=== PATIENT | female | born 1970 | race Caucasian/White ===

== ENCOUNTER 2020-06-15 14:41 | Observation (INO) ==
[2020-06-15] MEDS ORDERED: *HR* FentaNYL (PF) 100 MCG/2 ML VIAL IVP ONE (14:57)
[2020-06-15] MEDS ORDERED: Aspirin Enteric Coated 325 MG Tablet PO SCH (15:00)
[2020-06-15 15:29] LABS: Basophils # 0.1 K/mcL (0.0-0.2); Basophils % 0.6 %; Eosinophils # 0.2 K/mcL (0.0-0.6); Hemoglobin 15.6 g/dL (11.5-15.4); Immature Granulocytes % 0.4 % (0-4); Lymphocytes # 1.5 K/mcL (0.6-4.6); Mean Corpuscular HGB Conc 33.2 g/dL (31.6-35.5); Mean Corpuscular Hemoglobin 29.4 pg (28.0-33.3); Mean Corpuscular Volume 88.7 fL (83.0-100.0); Mean Platelet Volume 9.7 fL (9.4-12.4); Monocytes # 0.5 K/mcL (0.0-1.3); Monocytes % 6.4 %; Neutrophils # 6.1 K/mcL (1.6-8.9); Platelet Count 249 K/mcL (140-400); Red Cell Distribution Width 13.7 % (11.5-14.5); Segmented Neutrophils % 72.6 %; White Blood Count 8.4 K/mcL (4.3-11.1)
[2020-06-15 16:00] LABS: BUN/Creatinine Ratio 15 (6-26); Blood Urea Nitrogen 12 mg/dL (6-20); Carbon Dioxide 22 mEq/L (23-29); Chloride 109 mEq/L (98-107); Glucose 112 mg/dL (70-105); Osmolality,Calculated 287 (280-300); Potassium 3.9 mEq/L (3.5-5.1); Sodium 138 mEq/L (136-145); Troponin I < 0.03 ng/mL (< 0.04); eGFR For African Americans > 60 (> 60); eGFR For Non-African Americans > 60 (> 60)
[2020-06-15] MEDS ORDERED: Perflutren Lipid Microsphere 1.3 ML in 0.9 % Sodium Chloride 8.7 ML IVP PRN (17:42)
[2020-06-15] MEDS ORDERED: Nitroglycerin 0.4 MG TAB.SUBL SL PRN (17:42)
[2020-06-15] MEDS ORDERED: Naloxone 0.4 MG/ML INJ IVP PRN (17:42)
[2020-06-15] MEDS ORDERED: Ondansetron 4 MG/2 ML VIAL IVP PRN (17:42)
[2020-06-15] MEDS ORDERED: *HR* HYDROcodone/Acet 5/325 mg TABLET PO PRN (17:42)
[2020-06-15] MEDS ORDERED: Acetaminophen 325 MG TABLET PO PRN (17:42)
[2020-06-15 18:33] LABS: Thyroid Stimulating Hormone 1.237 mcIU/mL (0.340-5.600)
[2020-06-15] MEDS ORDERED: amLODIPine 5 MG TABLET PO SCH (20:30)
[2020-06-15] MEDS: lisinopriL 20 MG TABLET PO SCH (21:00)
[2020-06-15] MEDS: Ipratropium/Albuterol Neb 3 ML IH SCH (21:51)
[2020-06-15] MEDS: Ketorolac 30 MG/ML VIAL IVP PRN (22:33)
[2020-06-16 02:49] LABS: Basophils % 0.4 %; Eosinophils # 0.2 K/mcL (0.0-0.6); Hematocrit 43.6 % (35.3-44.9); Hemoglobin 14.4 g/dL (11.5-15.4); Immature Granulocytes % 0.4 % (0-4); Lymphocytes # 1.9 K/mcL (0.6-4.6); Lymphocytes % 20.8 %; Mean Corpuscular Hemoglobin 28.5 pg (28.0-33.3); Mean Corpuscular Volume 86.2 fL (83.0-100.0); Mean Platelet Volume 9.6 fL (9.4-12.4); Monocytes # 0.7 K/mcL (0.0-1.3); Monocytes % 7.7 %; Neutrophils # 6.3 K/mcL (1.6-8.9); Platelet Count 259 K/mcL (140-400); Red Blood Count 5.06 M/mcL (3.82-4.97); Red Cell Distribution Width 13.8 % (11.5-14.5); Segmented Neutrophils % 68.7 %; White Blood Count 9.2 K/mcL (4.3-11.1)
[2020-06-16 02:59] LABS: INR 1.2; Prothrombin Time 13.8 Seconds (9.4-12.1)
[2020-06-16 03:01] LABS: Activated Partial Thrombo Time 30.7 Seconds (26.0-36.0)
[2020-06-16 03:12] LABS: BUN/Creatinine Ratio 18 (6-26); Blood Urea Nitrogen 15 mg/dL (6-20); Calcium 8.5 mg/dL (8.6-10.3); Carbon Dioxide 22 mEq/L (23-29); Chloride 109 mEq/L (98-107); Chol/HDL Ratio 4.4 (0-4.9); Cholesterol 173 mg/dL (< 200); Glucose 87 mg/dL (70-105); HDL Cholesterol 39 mg/dL (40-59); LDL Cholesterol,Calculated 108 mg/dL (< 100); Osmolality,Calculated 286 (280-300); Phosphorous 3.9 mg/dL (2.7-4.5); Potassium 3.8 mEq/L (3.5-5.1); Sodium 138 mEq/L (136-145); Triglycerides 128 mg/dL (< 150); eGFR For African Americans > 60 (> 60); eGFR For Non-African Americans > 60 (> 60)
[2020-06-16] MEDS: Ipratropium/Albuterol Neb 3 ML IH SCH ×3 (03:13→15:46)
[2020-06-16 03:25] LABS: Thyroid Stimulating Hormone 1.484 mcIU/mL (0.340-5.600)
[2020-06-16] MEDS: Ketorolac 30 MG/ML VIAL IVP PRN ×2 (04:59→15:23)
[2020-06-16] MEDS ORDERED: *HR* Enoxaparin 40 MG/0.4 ML SYRINGE SQ SCH (06:00)
[2020-06-16] MEDS: lisinopriL 20 MG TABLET PO SCH (07:50)
[2020-06-16 08:29] LABS: Estimated Average Glucose 114 mg/dl; Hemoglobin A1C 5.6 %
[2020-06-16] MEDS ORDERED: Lisinopril-HCTZ 20-12.5mg TABLET PO SCH (09:00)
[2020-06-16] MEDS ORDERED: Nicotine 21 MG PATCH.TD24 TD SCH (09:00)
[2020-06-16] MEDS ORDERED: hydroCHLOROthiazide 25 MG TABLET PO SCH (09:00)
[2020-06-16 11:28] VITALS: BP 102/71
== END 2020-06-16 17:54 | disposition home or self-care (01) ==
LOC: SUATTDRO → 3BNU 14:41 → EMEROOARM 14:41 → SUATTDRO 17:56 → 3BNU 18:31
PROVIDERS: ADMIT Internal Medicine; ATTEND Internal Medicine

== ENCOUNTER 2020-08-15 14:53 | Inpatient (IN) ==
[2020-08-15] MEDS ORDERED: 0.9 % Sodium Chloride 1,000 ML IVC ONE ×3 (15:04→18:13)
[2020-08-15] MEDS ORDERED: Isovue-370 500 ML BOTTLE IVP ONE (15:04)
[2020-08-15] MEDS ORDERED: Gadolinium Contrast Agent (WT Based) IV PRN ×2 (15:05→17:08)
[2020-08-15 15:27] LABS: INR 1.8; Prothrombin Time 20.6 Seconds (9.4-12.1)
[2020-08-15 15:30] LABS: Activated Partial Thrombo Time 31.2 Seconds (26.0-36.0)
[2020-08-15 15:43] LABS: Bacteria,Urine Few per hpf (None-Few); Bilirubin,Urine Negative (Negative); Blood,Urine Large (Negative); Clarity,Urine Ex.Turbid (Clear); Color,Urine Dark-Yellow (Yellow); Glucose,Urine (UA) 50 mg/dL (Normal); Hyaline Casts,Urine Few per lpf (None Seen); Ketones,Urine Negative (Negative); Leukocyte Esterase,Urine Small (Negative); Mucus,Urine Few per lpf (None-Few); Nitrite,Urine Negative (Negative); Protein,Urine 70 mg/dL (Neg-Trace); RBC,Urine 15-30 per hpf (0-3); Specific Gravity,Urine 1.021 (1.010-1.025); Squamous Epithelial Cell,Urine Few per hpf (None-Few); WBC,Urine 15-30 per hpf (0-3)
[2020-08-15] MEDS ORDERED: Piperacillin/Tazobactam 3.375 GM in 0.9 % Sodium Chloride Mini Bag 100 ML IVPB ONE (15:53)
[2020-08-15] MEDS ORDERED: Vancomycin 1,750 MG/517.5 ML IV.SOLN IVPB ONE (16:00)
[2020-08-15 16:22] LABS: VBG HCO3 19 mEq/L (21-27); VBG PCO2 32 mmHg (41-51); VBG PH 7.39 pH Units (7.32-7.42); VBG PO2 50 mmHg (25-50)
[2020-08-15 16:25] LABS: Hematocrit 45.8 % (35.3-44.9); Hemoglobin 15.7 g/dL (11.5-15.4); Mean Corpuscular HGB Conc 34.3 g/dL (31.6-35.5); Mean Corpuscular Hemoglobin 28.4 pg (28.0-33.3); Mean Platelet Volume 11.1 fL (9.4-12.4); Platelet Count 313 K/mcL (140-400); Red Blood Count 5.53 M/mcL (3.82-4.97); Red Cell Distribution Width 13.2 % (11.5-14.5)
[2020-08-15 16:26] LABS: Alanine Aminotransferase 53 Units/L (7-52); Albumin 3.6 g/dL (3.5-5.7); Albumin/Globulin Ratio 0.9 (1.1-2.2); Alkaline Phosphatase 119 Units/L (34-104); Aspartate Amino Transferase 93 Units/L (13-39); BUN/Creatinine Ratio 14 (6-26); Bilirubin,Direct 0.3 mg/dL (0.0-0.2); Bilirubin,Indirect 0.5 mg/dL (0.0-1.0); Bilirubin,Total 0.8 mg/dL (0.3-1.0); Blood Urea Nitrogen 41 mg/dL (6-20); Calcium 9.1 mg/dL (8.6-10.3); Carbon Dioxide 14 mEq/L (23-29); Chloride 87 mEq/L (98-107); Ethanol < 10 mg/dL (Less than 10); Globulin 3.9 g/dL (2.4-3.5); Glucose 265 mg/dL (70-105); Lipase < 3 Units/L (11-82); Osmolality,Calculated 277 (280-300); Potassium 3.3 mEq/L (3.5-5.1); Sodium 124 mEq/L (136-145); Total Protein 7.5 g/dL (6.4-8.9); Troponin I < 0.03 ng/mL (< 0.04); eGFR For African Americans 21 (> 60); eGFR For Non-African Americans 17 (> 60)
[2020-08-15 16:27] LABS: Mean Corpuscular Volume 82.8 fL (83.0-100.0)
[2020-08-15 16:35] LABS: Amphetamine Screen,Urine Negative ng/mL (Cutoff=1000); Barbiturate Screen,Urine Negative ng/mL (Cutoff=200); Benzodiazepines Screen,Urine Negative ng/mL (Cutoff=200); Cannabinoid Screen,Urine Negative ng/mL (Cutoff = 50); Cocaine Screen,Urine Negative ng/mL (Cutoff= 300); Opiate Screen,Urine Positive ng/mL (Cutoff=300); Phencyclidine Screen,Urine Negative ng/mL (Cutoff=25)
[2020-08-15 16:35] LABS: Creatine Kinase 2797 Units/L (30-223)
[2020-08-15] MEDS ORDERED: *HR* LORazepam 2 MG/ML VIAL IVP ONE ×3 (16:35→23:42)
[2020-08-15 16:40] LABS: Acetaminophen < 10 mcg/mL (10-20); Salicylate < 2.5 mg/dL (15.0-30.0)
[2020-08-15 17:06] LABS: Magnesium 1.8 mg/dL (1.6-2.6)
[2020-08-15 17:19] LABS: Thyroid Stimulating Hormone 0.886 mcIU/mL (0.340-5.600)
[2020-08-15] MEDS ORDERED: Acyclovir 750 MG in D5% in Water 250 ML IVPB ONE (19:45)
[2020-08-15] MEDS ORDERED: Naloxone 0.4 MG/ML INJ IVP PRN (19:55)
[2020-08-15] MEDS ORDERED: Vancomycin 1,750 MG in 0.9 % Sodium Chloride 250 ML IVPB SCH (20:00)
[2020-08-15 20:01] LABS: Red Blood Cell,CSF < 2000 RBC/mcL
[2020-08-15 20:19] LABS: Appearance,CSF Clear (Clear)
[2020-08-15 20:22] LABS: Glucose,CSF 134 mg/dL (40-70); Total Protein,CSF 29 mg/dL (15-45)
[2020-08-15 20:57] LABS: Monocytes,CSF 2.5 %
[2020-08-15] MEDS ORDERED: Ipratropium/Albuterol Neb 3 ML IH SCH (21:00)
[2020-08-15] MEDS ORDERED: Ipratropium/Albuterol Neb 3 ML IH PRN (21:19)
[2020-08-15] MEDS ORDERED: 0.9 % Sodium Chloride 1,000 ML IVC SCH (21:30)
[2020-08-15] MEDS ORDERED: *HR* Dextrose 50 % in Water (Vial) 50 ML VIAL IVP PRN (21:30)
[2020-08-15] MEDS ORDERED: Dextrose Gel 15 GM/37.5 ML TUBE PO PRN ×2 (21:30)
[2020-08-15] MEDS ORDERED: D5% in Water 1,000 ML IVC PRN (21:30)
[2020-08-15 21:47] LABS: ABG Base Excess -3 mEq/L (-2 to 3); ABG HCO3 19 mEq/L (21-27); ABG Oxygen Saturation 94 % (95-98); ABG PCO2 25 mmHg (35-45); ABG PH 7.48 pH Units (7.32-7.45); ABG PO2 62 mmHg (85-104); ABG TCO2 19 mEq/L (20-26)
[2020-08-15 22:23] LABS: Calcium 7.9 mg/dL (8.6-10.3); Potassium 3.4 mEq/L (3.5-5.1)
[2020-08-15 22:29] LABS: Protein/Creatinine Ratio,Urine 0.74 mg/mg (0.00-0.20); Sodium, Urine 17.1 mEq/L
[2020-08-15] MEDS ORDERED: *HR* LORazepam 2 MG/ML VIAL ONE (23:42)
[2020-08-15 23:55] LABS: Adenovirus Not Detected (Not Detect); Bordetella Pertussis Not Detected (Not Detect); Chlamydophila pneumoniae Not Detected (Not Detect); Coronavirus 229E Not Detected (Not Detect); Coronavirus HKU1 Not Detected (Not Detect); Coronavirus NL63 Not Detected (Not Detect); Coronavirus OC43 Not Detected (Not Detect); Human Metapneumovirus Not Detected (Not Detect); Human Rhinovirus/Enterovirus Not Detected (Not Detect); Influenza A Subtype 2009 H1 Not Detected (Not Detect); Influenza B Not Detected (Not Detect); Mycoplasma pneumoniae Not Detected (Not Detect); Parainfluenza Virus 1 Not Detected (Not Detect); Parainfluenza Virus 2 Not Detected (Not Detect); Parainfluenza Virus 3 Not Detected (Not Detect); Parainfluenza Virus 4 Not Detected (Not Detect); Respiratory Syncytial Virus Not Detected (Not Detect); SARS-CoV-2 Not Detected (Not Detect)
[2020-08-16] MEDS ORDERED: Piperacillin/Tazobactam 3.375 GM in 0.9 % Sodium Chloride Mini Bag 100 ML IVPB SCH
[2020-08-16] MEDS ORDERED: *HR* Enoxaparin 120 MG/0.8 ML SYRINGE SQ SCH ×2 (00:15→06:00)
[2020-08-16 00:45] LABS: VBG Ionized Calcium 0.89 mmol/L (1.15-1.35)
[2020-08-16] MEDS ORDERED: *HR* Midazolam HCl 5 MG/5 ML VIAL IVP ONE ×2 (01:06→01:08)
[2020-08-16 01:08] LABS: Albumin/Globulin Ratio 0.9 (1.1-2.2); Bilirubin,Total 0.6 mg/dL (0.3-1.0); Globulin 3.4 g/dL (2.4-3.5); Potassium 3.4 mEq/L (3.5-5.1); Total Protein 6.4 g/dL (6.4-8.9)
[2020-08-16] MEDS: Dexmedetomidine HCl 400 MCG/100 ML MLS IVC SCH ×3 (01:27→17:57)
[2020-08-16] MEDS: FentaNYL (PF) 1,000 MCG/100 ML IV.SOLN IVC SCH ×3 (01:30→17:58)
[2020-08-16] MEDS: Insulin LISPRO 300 UNITS/3 ML VIAL SQ SCH ×7 (01:59→23:55)
[2020-08-16] MEDS: Cefepime HCl 2,000 MG in 0.9 % Sodium Chloride Mini Bag 100 ML IVPB SCH ×3 (02:02→15:25)
[2020-08-16 02:07] LABS: Basophils # 0.1 K/mcL (0.0-0.2); Basophils % 0.7 %; Eosinophils % 0.1 %; Hematocrit 43.5 % (35.3-44.9); Hemoglobin 14.4 g/dL (11.5-15.4); Immature Granulocytes % 0.8 % (0-4); Lymphocytes # 0.7 K/mcL (0.6-4.6); Lymphocytes % 6.4 %; Mean Corpuscular HGB Conc 33.1 g/dL (31.6-35.5); Mean Corpuscular Hemoglobin 27.2 pg (28.0-33.3); Mean Corpuscular Volume 82.2 fL (83.0-100.0); Mean Platelet Volume 11.2 fL (9.4-12.4); Monocytes % 9.6 %; Platelet Count 282 K/mcL (140-400); Red Blood Count 5.29 M/mcL (3.82-4.97); Red Cell Distribution Width 13.4 % (11.5-14.5); Segmented Neutrophils % 82.4 %; White Blood Count 10.9 K/mcL (4.3-11.1)
[2020-08-16] MEDS: Calcium Gluconate 1gm/50mL 1 GM/50 ML BAG IVPB PRN ×4 (02:08→18:01)
[2020-08-16 02:09] LABS: Monocytes # 1.1 K/mcL (0.0-1.3)
[2020-08-16 02:15] LABS: Bilirubin,Direct 0.2 mg/dL (0.0-0.2); Bilirubin,Indirect 0.4 mg/dL (0.0-1.0)
[2020-08-16 02:24] LABS: Platelet Estimate Normal (Normal)
[2020-08-16 02:27] LABS: Hepatitis B Surface Antigen Nonreactive (Nonreactive)
[2020-08-16 02:55] LABS: Hepatitis C Virus Antibody Nonreactive (Nonreactive)
[2020-08-16 02:56] LABS: Hepatitis B Core IgM Nonreactive (Nonreactive)
[2020-08-16 02:57] LABS: Hepatitis A Antibody IgM Nonreactive (Nonreactive)
[2020-08-16 03:19] LABS: Basophils % 0.4 %; Eosinophils % 0.1 %; Hematocrit 38.1 % (35.3-44.9); Lymphocytes # 0.7 K/mcL (0.6-4.6); Lymphocytes % 6.8 %; Mean Corpuscular HGB Conc 33.6 g/dL (31.6-35.5); Mean Corpuscular Hemoglobin 27.8 pg (28.0-33.3); Mean Corpuscular Volume 82.8 fL (83.0-100.0); Mean Platelet Volume 10.8 fL (9.4-12.4); Monocytes # 0.9 K/mcL (0.0-1.3); Monocytes % 9.7 %; Neutrophils # 7.9 K/mcL (1.6-8.9); Platelet Count 259 K/mcL (140-400); Red Cell Distribution Width 13.5 % (11.5-14.5); White Blood Count 9.6 K/mcL (4.3-11.1)
[2020-08-16 03:22] LABS: Hemoglobin 12.8 g/dL (11.5-15.4)
[2020-08-16 03:30] LABS: ABG Base Excess -2 mEq/L (-2 to 3); ABG HCO3 21 mEq/L (21-27); ABG Oxygen Saturation 95 % (95-98); ABG PCO2 31 mmHg (35-45); ABG PH 7.44 pH Units (7.32-7.45); ABG PO2 72 mmHg (85-104); ABG TCO2 22 mEq/L (20-26); Blood Gas VT 500 cc
[2020-08-16 03:33] LABS: Platelet Estimate Normal (Normal)
[2020-08-16 03:39] LABS: Albumin 2.7 g/dL (3.5-5.7); Albumin/Globulin Ratio 0.9 (1.1-2.2); Bilirubin,Total 0.6 mg/dL (0.3-1.0); Globulin 3.1 g/dL (2.4-3.5); Magnesium 2.4 mg/dL (1.6-2.6); Potassium 3.6 mEq/L (3.5-5.1); Total Protein 5.8 g/dL (6.4-8.9)
[2020-08-16] MEDS ORDERED: *HR* Heparin 5,000 UNIT/ML VIAL IVP ONE (03:46)
[2020-08-16] MEDS ORDERED: *HR* Heparin 5,000 UNIT/ML VIAL IVP PRN (03:46)
[2020-08-16] MEDS ORDERED: Phenylephrine 10 MG in 0.9 % Sodium Chloride 250 ML IVC SCH (04:00)
[2020-08-16] MEDS: Heparin 25,000UNIT/250ML 1/2NS 25,000 UNIT/250 ML IV.SOLN IVC SCH ×2 (04:30→20:31)
[2020-08-16] MEDS: 0.9 % Sodium Chloride 1,000 ML IVC SCH ×3 (04:30→20:30)
[2020-08-16 06:29] LABS: INR 1.6; Prothrombin Time 17.9 Seconds (9.4-12.1)
[2020-08-16] MEDS: Phenylephrine 50 MG in 0.9 % Sodium Chloride 250 ML IVC SCH ×2 (06:35→12:46)
[2020-08-16 06:41] LABS: Acinetobacter baumannii by PCR Not Detected (Not Detect); Candida albicans by PCR Not Detected (Not Detect); Candida glabrata by PCR Not Detected (Not Detect); Candida krusei by PCR Not Detected (Not Detect); Candida parapsilosis by PCR Not Detected (Not Detect); Candida tropicalis by PCR Not Detected (Not Detect); Enterobacter cloacae Cmplx PCR Not Detected (Not Detect); Enterobacteriaceae by PCR Not Detected (Not Detect); Enterococcus by PCR Not Detected (Not Detect); Escherichia coli by PCR Not Detected (Not Detect); Klebsiella oxytoca by PCR Not Detected (Not Detect); Klebsiella pneumoniae by PCR Not Detected (Not Detect); Proteus by PCR Not Detected (Not Detect); Pseudomonas aeruginosa by PCR Not Detected (Not Detect); Serratia marcescens by PCR Not Detected (Not Detect); Staphylococcus aureus by PCR DETECTED (Not Detect); Streptococcus agalactiae(B)PCR Not Detected (Not Detect); Streptococcus by PCR Not Detected (Not Detect); Streptococcus pneumoniae PCR Not Detected (Not Detect); Streptococcus pyogenes (A) PCR Not Detected (Not Detect); mecA Methicillin-Resist Gene DETECTED (Not Detect)
[2020-08-16] MEDS: Potassium Chloride 40 MEQ/200 ML BAG IVPB PRN ×5 (06:58→18:50)
[2020-08-16] MEDS: MetroNIDAZOLE 500 MG/100 ML 500 MG/100 ML BAG IVPB SCH ×2 (07:47→15:24)
[2020-08-16] MEDS ORDERED: Acyclovir 650 MG in D5% in Water 100 ML IVPB SCH (08:00)
[2020-08-16 08:30] LABS: Estimated Average Glucose 140 mg/dl
[2020-08-16] MEDS ORDERED: Perflutren Lipid Microsphere 1.3 ML in 0.9 % Sodium Chloride 8.7 ML IVP PRN (08:51)
[2020-08-16 11:00] LABS: VBG Ionized Calcium 0.99 mmol/L (1.15-1.35)
[2020-08-16] MEDS: Norepinephrine 4 MG/254 ML IV.SOLN IVC SCH ×2 (11:54→20:31)
[2020-08-16] MEDS ORDERED: Artificial Tears SOLN 15 ML BOTTLE BOTH EYES PRN (12:01)
[2020-08-16] MEDS: Pantoprazole 40 MG VIAL IVP SCH (12:45)
[2020-08-16] MEDS: Chlorhexidine Rinse 15 ML MOUTHWASH MM SCH ×2 (12:46→20:37)
[2020-08-16] MEDS: Vancomycin Oral Soln 125 MG/2.5 ML UDC PO SCH ×3 (13:08→20:37)
[2020-08-16] MEDS: Artificial Tears SOLN 15 ML BOTTLE BOTH EYES SCH ×2 (15:24→20:38)
[2020-08-16] MEDS ORDERED: Vancomycin 1,500 MG/265 ML IV.SOLN IVPB SCH (16:00)
[2020-08-16 17:27] LABS: Albumin 2.5 g/dL (3.5-5.7); Albumin/Globulin Ratio 0.8 (1.1-2.2); Bilirubin,Total 0.5 mg/dL (0.3-1.0); Calcium 7.5 mg/dL (8.6-10.3); Potassium 3.5 mEq/L (3.5-5.1); Total Protein 5.5 g/dL (6.4-8.9)
[2020-08-16] MEDS: *HR* Heparin 5,000 UNIT/ML VIAL IVP PRN (17:57)
[2020-08-16] MEDS: MethylPREDNISolone 40 MG/ML VIAL IVP SCH (21:49)
[2020-08-17] MEDS: MetroNIDAZOLE 500 MG/100 ML 500 MG/100 ML BAG IVPB SCH ×4 (00:25→23:36)
[2020-08-17] MEDS: Artificial Tears SOLN 15 ML BOTTLE BOTH EYES SCH ×7 (00:26→23:37)
[2020-08-17] MEDS: Cefepime HCl 2,000 MG in 0.9 % Sodium Chloride Mini Bag 100 ML IVPB SCH ×2 (01:25→14:28)
[2020-08-17] MEDS: FentaNYL (PF) 1,000 MCG/100 ML IV.SOLN IVC SCH ×3 (01:59→17:32)
[2020-08-17] MEDS: Phenylephrine 50 MG in 0.9 % Sodium Chloride 250 ML IVC SCH (02:32)
[2020-08-17] MEDS: 0.9 % Sodium Chloride 1,000 ML IVC SCH (04:02)
[2020-08-17] MEDS: MethylPREDNISolone 40 MG/ML VIAL IVP SCH ×3 (04:03→17:56)
[2020-08-17] MEDS: Insulin LISPRO 300 UNITS/3 ML VIAL SQ SCH ×6 (04:21→23:36)
[2020-08-17] MEDS: Norepinephrine 4 MG/254 ML IV.SOLN IVC SCH (04:49)
[2020-08-17 05:01] LABS: Basophils # 0.1 K/mcL (0.0-0.2); Basophils % 0.7 %; Eosinophils % 0.2 %; Hematocrit 37.3 % (35.3-44.9); Hemoglobin 11.9 g/dL (11.5-15.4); Immature Granulocytes % 2.2 % (0-4); Lymphocytes # 0.4 K/mcL (0.6-4.6); Lymphocytes % 4.7 %; Mean Corpuscular HGB Conc 31.9 g/dL (31.6-35.5); Mean Corpuscular Hemoglobin 27.4 pg (28.0-33.3); Mean Corpuscular Volume 85.9 fL (83.0-100.0); Mean Platelet Volume 10.9 fL (9.4-12.4); Monocytes # 0.4 K/mcL (0.0-1.3); Monocytes % 5.2 %; Neutrophils # 7.2 K/mcL (1.6-8.9); Platelet Count 277 K/mcL (140-400); Red Blood Count 4.34 M/mcL (3.82-4.97); Red Cell Distribution Width 14.2 % (11.5-14.5); White Blood Count 8.3 K/mcL (4.3-11.1)
[2020-08-17 05:02] LABS: VBG Ionized Calcium 1.03 mmol/L (1.15-1.35)
[2020-08-17 05:07] LABS: ABG Base Excess -6 mEq/L (-2 to 3); ABG HCO3 20 mEq/L (21-27); ABG Oxygen Saturation 95 % (95-98); ABG PCO2 38 mmHg (35-45); ABG PH 7.32 pH Units (7.32-7.45); ABG PO2 81 mmHg (85-104); ABG TCO2 21 mEq/L (20-26); Blood Gas Modality ASSIST CONTROL; Blood Gas VT 450 cc
[2020-08-17 05:29] LABS: BUN/Creatinine Ratio 29 (6-26); Blood Urea Nitrogen 33 mg/dL (6-20); Calcium 7.4 mg/dL (8.6-10.3); Carbon Dioxide 20 mEq/L (23-29); Chloride 105 mEq/L (98-107); Glucose 146 mg/dL (70-105); Magnesium 2.4 mg/dL (1.6-2.6); Osmolality,Calculated 282 (280-300); Phosphorous 2.7 mg/dL (2.7-4.5); Potassium 4.6 mEq/L (3.5-5.1); Sodium 131 mEq/L (136-145); eGFR For African Americans > 60 (> 60); eGFR For Non-African Americans 51 (> 60)
[2020-08-17] MEDS: Dexmedetomidine HCl 400 MCG/100 ML MLS IVC SCH ×2 (05:32→18:36)
[2020-08-17 05:56] LABS: Platelet Estimate Normal (Normal)
[2020-08-17] MEDS: Vancomycin Oral Soln 125 MG/2.5 ML UDC PO SCH ×6 (08:36→21:32)
[2020-08-17] MEDS: Chlorhexidine Rinse 15 ML MOUTHWASH MM SCH ×2 (08:36→20:43)
[2020-08-17] MEDS: Pantoprazole 40 MG VIAL IVP SCH (08:36)
[2020-08-17] MEDS: Calcium Gluconate 1gm/50mL 1 GM/50 ML BAG IVPB PRN ×2 (10:51→22:27)
[2020-08-17] MEDS: Heparin 25,000UNIT/250ML 1/2NS 25,000 UNIT/250 ML IV.SOLN IVC SCH (11:50)
[2020-08-17 12:20] LABS: Source,Synovial Fluid Left knee
[2020-08-17] MEDS: Vancomycin 500 MG, Sodium Chloride IRRigation 250 ML RC SCH ×3 (12:51→20:53)
[2020-08-17 14:21] LABS: Appearance,Synovial Fluid Cloudy (Clear-Hazy); Color,Synovial Fluid Amber (Straw)
[2020-08-17 14:40] LABS: Glucose,Synovial Fluid 53 mg/dL (No Ref Range); LDH,Synovial Fluid > 1200 Units/L (No Ref Range)
[2020-08-17] MEDS: *HR* Heparin 5,000 UNIT/ML VIAL IVP PRN (15:15)
[2020-08-17 15:30] LABS: Lymphocytes,Synovial Fluid 0 %
[2020-08-17 21:34] LABS: VBG Ionized Calcium 1.05 mmol/L (1.15-1.35)
[2020-08-18] MEDS: Heparin 25,000UNIT/250ML 1/2NS 25,000 UNIT/250 ML IV.SOLN IVC SCH ×2 (00:39→14:21)
[2020-08-18] MEDS: FentaNYL (PF) 1,000 MCG/100 ML IV.SOLN IVC SCH ×2 (01:40→13:35)
[2020-08-18] MEDS: Cefepime HCl 2,000 MG in 0.9 % Sodium Chloride Mini Bag 100 ML IVPB SCH (01:43)
[2020-08-18] MEDS: Norepinephrine 4 MG/254 ML IV.SOLN IVC SCH (03:19)
[2020-08-18] MEDS: Artificial Tears SOLN 15 ML BOTTLE BOTH EYES SCH ×3 (03:32→11:49)
[2020-08-18] MEDS: Insulin LISPRO 300 UNITS/3 ML VIAL SQ SCH ×3 (03:33→11:50)
[2020-08-18 04:20] LABS: Hematocrit 33.2 % (35.3-44.9); Hemoglobin 10.7 g/dL (11.5-15.4); Mean Corpuscular HGB Conc 32.2 g/dL (31.6-35.5); Mean Corpuscular Hemoglobin 27.6 pg (28.0-33.3); Mean Corpuscular Volume 85.6 fL (83.0-100.0); Mean Platelet Volume 10.7 fL (9.4-12.4); Nucleated Red Blood Cells 0.1 /100 WBC (0); Platelet Count 329 K/mcL (140-400); Red Blood Count 3.88 M/mcL (3.82-4.97); Red Cell Distribution Width 14.9 % (11.5-14.5)
[2020-08-18 04:32] LABS: VBG Ionized Calcium 1.09 mmol/L (1.15-1.35)
[2020-08-18 04:39] LABS: BUN/Creatinine Ratio 30 (6-26); Blood Urea Nitrogen 28 mg/dL (6-20); Calcium 7.8 mg/dL (8.6-10.3); Carbon Dioxide 20 mEq/L (23-29); Chloride 107 mEq/L (98-107); Glucose 149 mg/dL (70-105); Osmolality,Calculated 290 (280-300); Potassium 4.5 mEq/L (3.5-5.1); Sodium 136 mEq/L (136-145); eGFR For African Americans > 60 (> 60); eGFR For Non-African Americans > 60 (> 60)
[2020-08-18 04:42] LABS: Neutrophils # 10.6 K/mcL (1.6-8.9)
[2020-08-18 04:43] LABS: Platelet Estimate Normal (Normal); Toxic Granulation Present (Not Present); Toxic Vacuolation Present (Not Present)
[2020-08-18 04:53] LABS: ABG Base Excess -3 mEq/L (-2 to 3); ABG HCO3 23 mEq/L (21-27); ABG Oxygen Saturation 94 % (95-98); ABG PCO2 43 mmHg (35-45); ABG PH 7.34 pH Units (7.32-7.45); ABG PO2 75 mmHg (85-104); ABG TCO2 24 mEq/L (20-26); Blood Gas Modality ASSIST CONTROL; Blood Gas VT 450 cc
[2020-08-18] MEDS: Calcium Gluconate 1gm/50mL 1 GM/50 ML BAG IVPB PRN (06:19)
[2020-08-18] MEDS: MethylPREDNISolone 40 MG/ML VIAL IVP SCH (06:19)
[2020-08-18 07:05] LABS: Magnesium 2.8 mg/dL (1.6-2.6); Phosphorous 2.6 mg/dL (2.7-4.5)
[2020-08-18] MEDS: Pantoprazole 40 MG VIAL IVP SCH (08:28)
[2020-08-18] MEDS: Chlorhexidine Rinse 15 ML MOUTHWASH MM SCH (08:28)
[2020-08-18] MEDS: MetroNIDAZOLE 500 MG/100 ML 500 MG/100 ML BAG IVPB SCH (08:30)
[2020-08-18] MEDS: Dexmedetomidine HCl 400 MCG/100 ML MLS IVC SCH (08:46)
[2020-08-18 09:18] LABS: VBG Ionized Calcium 1.12 mmol/L (1.15-1.35)
[2020-08-18] MEDS: Vancomycin 500 MG, Sodium Chloride IRRigation 250 ML RC SCH ×2 (10:33→13:34)
[2020-08-18] MEDS: Vancomycin Oral Soln 125 MG/2.5 ML UDC PO SCH ×2 (11:00→13:34)
[2020-08-18] MEDS ORDERED: Cefepime HCl 2,000 MG in 0.9 % Sodium Chloride Mini Bag 100 ML IVPB SCH (14:00)
[2020-08-18 14:12] VITALS: BP 124/83
== END 2020-08-18 15:47 | disposition short-term general hospital (02) | DRG 720 ==
LOC: 2NNU 14:53 → EMEROOARM 14:53 → 2NNU 20:54 → ICNU 08-16 00:20
PROVIDERS: ADMIT Student in an Organized Health Care Education/Training Program; ATTEND Student in an Organized Health Care Education/Training Program

== ENCOUNTER 2021-05-31 16:56 | Inpatient (IN) ==
[2021-05-31] MEDS ORDERED: Isovue-370 500 ML BOTTLE IVP ONE (18:12)
[2021-05-31] MEDS ORDERED: Cefepime HCl 2,000 MG in Water for inj. (sterile) 20 ML IVP ONE (18:30)
[2021-05-31] MEDS ORDERED: DAPTOmycin 650 MG in 0.9 % Sodium Chloride 100 ML IVPB ONE (18:30)
[2021-05-31] MEDS ORDERED: Ketorolac 15 MG/ML VIAL IVP ONE (18:34)
[2021-05-31 18:35] LABS: Hemoglobin 10.3 g/dL (11.5-15.4); Nucleated Red Blood Cells 0.1 /100 WBC (0)
[2021-05-31 18:37] LABS: Hematocrit 32.6 % (35.3-44.9); Mean Corpuscular HGB Conc 31.6 g/dL (31.6-35.5); Mean Corpuscular Hemoglobin 23.1 pg (28.0-33.3); Mean Corpuscular Volume 73.3 fL (83.0-100.0); Mean Platelet Volume 9.1 fL (9.4-12.4); Platelet Count 578 K/mcL (140-400); Red Blood Count 4.45 M/mcL (3.82-4.97); White Blood Count 26.3 K/mcL (4.3-11.1)
[2021-05-31 18:44] LABS: BUN/Creatinine Ratio 14 (6-26); Blood Urea Nitrogen 12 mg/dL (6-20); Calcium 8.9 mg/dL (8.6-10.3); Carbon Dioxide 27 mEq/L (23-29); Chloride 100 mEq/L (98-107); Glucose 122 mg/dL (70-105); Osmolality,Calculated 281 (280-300); Potassium 4.1 mEq/L (3.5-5.1); Sodium 135 mEq/L (136-145); eGFR For African Americans > 60 (> 60); eGFR For Non-African Americans > 60 (> 60)
[2021-05-31 19:07] LABS: Lymphocytes # 2.6 K/mcL (0.6-4.6); Monocytes # 2.1 K/mcL (0.0-1.3); Neutrophils # 21.6 K/mcL (1.6-8.9)
[2021-05-31 19:10] LABS: Dohle Bodies Present (Not Present)
[2021-05-31] MEDS ORDERED: 0.9 % Sodium Chloride 1,000 ML IVC ONE ×2 (22:02→22:03)
[2021-06-01] MEDS ORDERED: 0.9 % Sodium Chloride 1,000 ML ONE (03:01)
[2021-06-01] MEDS ORDERED: *HR* HYDROmorphone 2 MG TABLET PO ONE (05:11)
[2021-06-01] MEDS ORDERED: Naloxone 0.4 MG/ML INJ IVP PRN ×2 (05:26→22:55)
[2021-06-01] MEDS ORDERED: Ondansetron 4 MG/2 ML VIAL IVP PRN ×2 (05:26→22:55)
[2021-06-01] MEDS ORDERED: Gadolinium Contrast Agent (WT Based) IV PRN (05:36)
[2021-06-01 06:12] LABS: Influenza A PCR Negative (Negative); Influenza B PCR Negative (Negative); Resp. Syncytial Virus PCR Negative (Negative)
[2021-06-01 06:13] LABS: SARS-CoV-2 by PCR (In House) Negative (Negative)
[2021-06-01 06:41] LABS: Hemoglobin 9.2 g/dL (11.5-15.4)
[2021-06-01 06:42] LABS: Hematocrit 28.9 % (35.3-44.9); Mean Corpuscular HGB Conc 31.8 g/dL (31.6-35.5); Mean Corpuscular Hemoglobin 22.9 pg (28.0-33.3); Mean Corpuscular Volume 72.1 fL (83.0-100.0); Mean Platelet Volume 8.9 fL (9.4-12.4); Platelet Count 547 K/mcL (140-400); Red Blood Count 4.01 M/mcL (3.82-4.97); Red Cell Distribution Width 16.8 % (11.5-14.5); White Blood Count 25.2 K/mcL (4.3-11.1)
[2021-06-01 06:55] LABS: INR 1.5; Prothrombin Time 17.2 Seconds (9.4-12.1)
[2021-06-01] MEDS: Cefepime HCl 2,000 MG in 0.9 % Sodium Chloride Mini Bag 100 ML IVPB SCH ×3 (06:55→21:32)
[2021-06-01] MEDS: Famotidine 20 MG TABLET PO SCH ×3 (06:56→15:24)
[2021-06-01] MEDS: *HR* Heparin 5,000 UNIT/ML VIAL SQ SCH ×4 (06:56→20:58)
[2021-06-01 06:58] LABS: Activated Partial Thrombo Time 31.5 Seconds (26.0-36.0)
[2021-06-01 07:19] LABS: BUN/Creatinine Ratio 10 (6-26); Blood Urea Nitrogen 8 mg/dL (6-20); Calcium 8.4 mg/dL (8.6-10.3); Carbon Dioxide 26 mEq/L (23-29); Chloride 102 mEq/L (98-107); Chol/HDL Ratio 6.5 (0-4.9); Cholesterol 104 mg/dL (< 200); Ferritin 162 ng/mL (10-120); Glucose 128 mg/dL (70-105); HDL Cholesterol 16 mg/dL (40-59); Iron < 10 mcg/dL (50-170); LDL Cholesterol,Calculated 66 mg/dL (< 100); Osmolality,Calculated 280 (280-300); Sodium 135 mEq/L (136-145); Transferrin 170 mg/dL (203-362); Triglycerides 108 mg/dL (< 150); eGFR For African Americans > 60 (> 60); eGFR For Non-African Americans > 60 (> 60)
[2021-06-01 07:23] LABS: Folate 8.1 ng/mL (3.0-16.0)
[2021-06-01 10:08] LABS: Estimated Average Glucose 137 mg/dl; Hemoglobin A1C 6.4 %
[2021-06-01] MEDS: Acetaminophen 325 MG TABLET PO PRN ×2 (11:18→20:57)
[2021-06-01] MEDS ORDERED: GADOBUTROL 30 MMOL/30 ML VIAL IVP ONE (12:08)
[2021-06-01 12:27] LABS: Adenovirus Not Detected (Not Detect); Bordetella Pertussis Not Detected (Not Detect); Chlamydophila pneumoniae Not Detected (Not Detect); Coronavirus 229E Not Detected (Not Detect); Coronavirus HKU1 Not Detected (Not Detect); Coronavirus NL63 Not Detected (Not Detect); Coronavirus OC43 Not Detected (Not Detect); Human Metapneumovirus Not Detected (Not Detect); Human Rhinovirus/Enterovirus Not Detected (Not Detect); Influenza A Subtype 2009 H1 Not Detected (Not Detect); Influenza B Not Detected (Not Detect); Mycoplasma pneumoniae Not Detected (Not Detect); Parainfluenza Virus 1 Not Detected (Not Detect); Parainfluenza Virus 2 Not Detected (Not Detect); Parainfluenza Virus 3 Not Detected (Not Detect); Parainfluenza Virus 4 Not Detected (Not Detect); Respiratory Syncytial Virus Not Detected (Not Detect); SARS-CoV-2 Not Detected (Not Detect)
[2021-06-01] MEDS ORDERED: DAPTOmycin 650 MG in 0.9 % Sodium Chloride 100 ML IVPB SCH (20:00)
[2021-06-01] MEDS ORDERED: *HR* HYDROmorphone (PF) 1 MG/ML SYRINGE IVP PRN (21:21)
[2021-06-01] MEDS ORDERED: 0.9 % Sodium Chloride 1,000 ML IVC SCH (21:30)
[2021-06-01] MEDS ORDERED: *HR* Propofol 200 MG/20 ML VIAL IVP ONE (22:31)
[2021-06-01] MEDS ORDERED: *HR* Midazolam HCl 2 MG/2 ML VIAL ONE (22:31)
[2021-06-01] MEDS ORDERED: *HR* FentaNYL (PF) 100 MCG/2 ML VIAL ONE (22:31)
[2021-06-01] MEDS ORDERED: Ondansetron 4 MG/2 ML VIAL ONE (22:35)
[2021-06-01] MEDS ORDERED: Lidocaine -MPF 2% 2 ML VIAL ONE (22:35)
[2021-06-01] MEDS ORDERED: Nitroglycerin 0.4 MG TAB.SUBL SL PRN (22:55)
[2021-06-01] MEDS ORDERED: Albuterol 2.5 MG/3 ML NEBULIZER IH PRN (22:55)
[2021-06-01] MEDS ORDERED: *HR* FentaNYL (PF) 100 MCG/2 ML VIAL IVP PRN (22:55)
[2021-06-01] MEDS ORDERED: *HR* HYDROMORPHONE 2 MG/ML VIAL ONE (23:22)
[2021-06-02] MEDS: *HR* HYDROmorphone (PF) 1 MG/ML SYRINGE IVP PRN ×4 (00:34→20:56)
[2021-06-02] MEDS ORDERED: Gadolinium Contrast Agent (WT Based) IV PRN (03:42)
[2021-06-02] MEDS ORDERED: Nitroglycerin 0.4 MG TAB.SUBL SL PRN (03:42)
[2021-06-02] MEDS ORDERED: Albuterol 2.5 MG/3 ML NEBULIZER IH PRN (03:42)
[2021-06-02] MEDS ORDERED: *HR* HYDROcodone/Acet 5/325 mg TABLET PO PRN (03:42)
[2021-06-02] MEDS ORDERED: Acetaminophen 325 MG TABLET PO PRN (03:42)
[2021-06-02] MEDS ORDERED: Naloxone 0.4 MG/ML INJ IVP PRN ×2 (03:42)
[2021-06-02] MEDS ORDERED: *HR* FentaNYL (PF) 100 MCG/2 ML VIAL IVP PRN (03:42)
[2021-06-02] MEDS ORDERED: *HR* HYDROmorphone (PF) 1 MG/ML SYRINGE IVP PRN ×2 (03:42→04:00)
[2021-06-02] MEDS ORDERED: Ondansetron 4 MG/2 ML VIAL IVP PRN ×2 (03:42→08:00)
[2021-06-02] MEDS: 0.9 % Sodium Chloride 1,000 ML IVC SCH ×2 (05:25→13:34)
[2021-06-02] MEDS: Cefepime HCl 2,000 MG in 0.9 % Sodium Chloride Mini Bag 100 ML IVPB SCH ×2 (05:26→13:33)
[2021-06-02] MEDS: *HR* Heparin 5,000 UNIT/ML VIAL SQ SCH ×3 (05:26→20:49)
[2021-06-02 06:31] LABS: Hematocrit 30.2 % (35.3-44.9); Hemoglobin 9.2 g/dL (11.5-15.4); Mean Corpuscular HGB Conc 30.5 g/dL (31.6-35.5); Mean Corpuscular Hemoglobin 22.2 pg (28.0-33.3); Mean Corpuscular Volume 72.9 fL (83.0-100.0); Mean Platelet Volume 8.9 fL (9.4-12.4); Platelet Count 541 K/mcL (140-400); Red Blood Count 4.14 M/mcL (3.82-4.97); Red Cell Distribution Width 17.1 % (11.5-14.5); White Blood Count 27.6 K/mcL (4.3-11.1)
[2021-06-02 06:53] LABS: BUN/Creatinine Ratio 17 (6-26); Blood Urea Nitrogen 12 mg/dL (6-20); Carbon Dioxide 23 mEq/L (23-29); Chloride 106 mEq/L (98-107); Glucose 185 mg/dL (70-105); Osmolality,Calculated 285 (280-300); Potassium 4.6 mEq/L (3.5-5.1); Sodium 135 mEq/L (136-145); eGFR For African Americans > 60 (> 60); eGFR For Non-African Americans > 60 (> 60)
[2021-06-02 06:55] LABS: Calcium 8.5 mg/dL (8.6-10.3)
[2021-06-02 07:33] LABS: Anisocytosis 1+ (Not Present); Monocytes # 1.1 K/mcL (0.0-1.3); Neutrophils # 25.4 K/mcL (1.6-8.9)
[2021-06-02 07:34] LABS: Platelet Estimate Normal (Normal)
[2021-06-02] MEDS ORDERED: NON-FORMULARY MEDICATION 1 EACH EACH (Omeprazole [Prilosec] 40 MG Capsule.Dr) PO SCH (09:00)
[2021-06-02] MEDS ORDERED: lisinopriL 20 MG TABLET PO SCH (09:00)
[2021-06-02] MEDS ORDERED: Furosemide 20 MG TABLET PO SCH (09:00)
[2021-06-02] MEDS: Famotidine 20 MG TABLET PO SCH ×2 (09:11→18:21)
[2021-06-02] MEDS ORDERED: DAPTOmycin 650 MG in 0.9 % Sodium Chloride 100 ML IVPB SCH (20:00)
[2021-06-02 21:49] VITALS: BP 128/84; PULSE 101; TEMP 99.2; O2SAT 96
== END 2021-06-02 22:32 | disposition short-term general hospital (02) | DRG 710 ==
LOC: EMEROOARM 16:56 → CDU 16:56 → SUATTDRO 06-01 05:04 → CDU 06-01 05:35 → 2NNU 06-02 01:26 → 2NENU 06-02 08:23
PROVIDERS: ADMIT Internal Medicine; ATTEND Internal Medicine